=== PATIENT | male | born 2000 | race Caucasian/White ===

== ENCOUNTER 2023-11-09 15:42 | Emergency (ER) | payer OTHER, MEDICAID, SELFPAY | END 2023-11-09 16:25 | disposition left against medical advice (07) | LOC: ER 21:40 | PROVIDERS: Emergency Provider Emergency Medicine | DX: Z53.21 Procedure and treatment not carried out due to patient leaving prior to being seen by health care provider (principal) ==

== ENCOUNTER 2023-11-17 16:07 | Emergency (ER) | payer MEDICAID, SELFPAY ==
[2023-11-17 16:13] VITALS: BP 124/72; PULSE 75; RESP 16; TEMP 36.6; O2SAT 98
--- NOTE | 2023-11-17 16:40 | W.ED.GENAD ---
Discharge Plan Disposition Patient Disposition: Home Condition: Stable Discharge Details Clinical Impression: Decreased hearing of right ear Primary Care Provider: Unknown,Unknown ED Provider: Rob Espana Discharge Instructions Additional Instructions: use drops provided to you in the ED: 3 drops twice daily follow up with ENT for re-evaluation of your ear and audiogram to evaluate your hearing Referrals: Leonard Harvey MD [ [facility] STAFF PHYSICIAN] - [facility] General Date/Time Provider Initiated Documentation: 11/17/23 16:37. Limitations to Documentation: no limitations. Information obtained by: patient. HPI Narrative: 23-year-old gentleman without significant past medical history presents for evaluation of right ear fullness and decreased hearing. He reports that the symptoms have been ongoing for a couple of weeks. He denies any pain or drainage from his ear. He states that previously he was told that loud music shock wax against his ear and caused him trouble. He denies any recent swimming. General Stated Complaint: EarProblem MAITE: 4 Exam Narrative Exam Narrative: Review of Systems: All systems reviewed & are unremarkable except as noted in HPI and below Well-developed, no acute distress NCAT PERRL, normal conjunctiva Left TM and canal unremarkable Right TM without any wax in the canal, the TM is occluded by hydrogen peroxide bubbles, the canal appears erythematous and slightly edematous with some debris RRR Unlabored respiratory effort Nondistended abdomen Extremities w/o deformity, no cyanosis, no edema No rashes or lesions. no focal neurologic deficits Appropriate mood and affect Course Vital Signs Vital signs: Vital Signs Temperature 36.6 C 11/17/23 16:13 Pulse 75 11/17/23 16:13 Respiratory Rate 16 11/17/23 16:13 Blood Pressure 124/72 11/17/23 16:13 Pulse Oximetry 98 11/17/23 16:13 Temperature 36.6 C 11/17/23 16:13 Temperature Source Tympanic 11/17/23 16:13 Pulse 75 11/17/23 16:13 Respiratory Rate 16 11/17/23 16:13 Blood Pressure 124/72 11/17/23 16:13 Blood Pressure Position Sitting 11/17/23 16:13 Pulse Oximetry 98 11/17/23 16:13 Oxygen Delivery Method Room Air 11/17/23 16:13 Oxygen Flow Rate 0 11/17/23 16:13 Pain Level 0 11/17/23 16:13 Medical Decision Making Emergent evaluation of right ear discomfort and decreased hearing. Initial differential includes cerumen impaction, otitis externa, otitis media, ruptured TM. The patient had gotten hydrogen peroxide in his ear prior to my evaluation. On my evaluation there does not appear to be any significant amount of wax in the canal. The TM does not appear to be intact and I am concerned that there might be some disruption there. This could be a false finding secondary to the hydrogen peroxide bubbling. But given his symptoms and the appearance of the canal, I will treat with ciprofloxacin drops. I recommend close follow-up with either PCP or ENT for reevaluation of the ear and the patient likely needs an audiogram for ongoing hearing changes. A referral has been placed for him to follow-up with ENT. Medical Records Medical records reviewed: Yes I reviewed the patient's medical records. Quality:SDOH Health Related Social Needs: No Data to Display PFSH All Active Problems Decreased hearing of right ear (Acute) Social History Smoking risk assessment performed?: No
[2023-11-17] MEDS: Ciprofloxacin/Dexameth. 7.5 ML BTL AS (16:43)
== END 2023-11-17 16:44 | disposition home or self-care (01) ==
PROVIDERS: Emergency Provider Emergency Medicine
DX: H91.91 Unspecified hearing loss, right ear (principal)
CPT/HCPCS: 99282; 99283

== ENCOUNTER 2024-01-15 17:16 | Emergency (ER) | payer MEDICAID, SELFPAY ==
[2024-01-15 17:17] VITALS: BP 168/78; PULSE 85; RESP 10; TEMP 36.8; O2SAT 98
[2024-01-15 17:41] LABS: Bilirubin Negative (Negative); Blood Moderate (Negative); Clarity Sl Cloudy (Clear); Glucose Negative (Negative); Ketones Negative (Negative); Leukocyte Esterase Negative (Negative); Nitrite Negative (Negative); Specific Gravity >= 1.030 (1.005-1.025); Urobilinogen 0.2 mg/dL (Up to 0.2); pH 6.5 (5-8)
--- NOTE | 2024-01-15 17:47 | ED.GENADUL_ITS ---
Discharge Plan Disposition Patient Disposition: Home Condition: Stable Discharge Details Clinical Impression: Concern about sexually transmitted disease in male without diagnosis Primary Care Provider: None,None ED Provider: Jared Villegas Home Meds and New Rx's Prescriptions: New valacyclovir 1 gram tablet 1,000 mg PO BID 10 Days Qty: 20 0RF Discharge Instructions Instructions: Valacyclovir, STI Prevention, Sexually Transmitted Infections ED Additional Instructions: You were seen in the emergency department for your concerning lesions on your penis, you refused exam but did have pictures, I am concerned that you may have HSV versus another STI, we initiated one-time treatment for gonorrhea and chlamydia coverage and I sent a prescription for you to start empiric treatment for an HSV infection, you state that your partner stated she had a yeast infection, you certainly can use topical antifungals like terbinafine or butenafine on the area 2-3 times per day and evaluate for response to topical treatment therapy. We have sent out tests for gonorrhea and chlamydia as well as UTI, herpes simplex virus, HIV and syphilis. Some of these tests will take multiple days to return, please check your portal for results, I do recommend that you get another herpes simplex antibody test in 3 to 4 weeks as you may not be seropositive yet if this is your first outbreak. HPI General Date/Time Provider Initiated Documentation: 01/15/24 17:32 . HPI Narrative: 23 year-old male presents to ED today by POV/ambulating with a chief complaint of penile pain and lesions with onset after having unprotected sex about 2 weeks ago, states lesions appeared diffusely to glans today. Quality described as soreness, no radiation to viral prodromal illness over the past weeks- no radiation to fever, body aches, sore throat, denies penile discharge, denies overt dysuria, denies foul odors. Severity is described as moderate. Palliating factors include nothing attempted. Provoking factors include nothing specific. Events leading up to the incident/Associated Symptoms: Patient states he has not been sexually active in a long time prior to this, denies any previous STDs. Patient not anticoagulated. Related Data Home Medications ?Medication ?Instructions ?Recorded ?Confirmed valacyclovir 1 gram tablet 1,000 mg PO BID 10 days #20 tabs 01/15/24 Previous Rx's ?Medication ?Instructions ?Recorded valacyclovir 1 gram tablet 1,000 mg PO BID 10 days #20 tabs 01/15/24 Allergies Allergy/AdvReac Type Severity Reaction Status Date / Time No Known Allergies Allergy Unverified 01/15/24 17:20 General Stated Complaint: Male Reproductive Problem MAITE: 4 Review of Systems All systems reviewed & are unremarkable except as noted in HPI and below Exam Narrative Exam Narrative: GENERAL APPEARANCE: Well-nourished, non-toxic, awake and alert, atraumatic, no acute distress. SKIN: Warm, pink, dry, intact, without rashes/lesions/ulcerations. HEAD: Normocephalic, atraumatic, normal hair distribution for gender/age. EYES: Normal conjunctiva, no exudates on lids/lashes. ENT: Nares patent, no circumoral cyanosis, no facial swelling NECK: Supple, trachea midline, painless cervical ROM. LUNGS/CHEST: Non-labored respirations, normal A/P diameter, symmetrical expansion, no chest wall deformity HEART (CV/PV): No peripheral edema, no JVD. ABDOMEN: Soft, non-distended, no guarding. : Exam refused by patient MSK: Normal ROM, no swelling/deformity to bilateral UEs or LEs, moving all extremities without weakness, no cyanosis, spine midline without tenderness, normal curvature. NEURO: Mental Status AAOx4 - alert to person, place, time, events No facial droop, no forehead involvement. Motor: No focal weakness - strength 5/5 in bilateral UEs and LEs, proximal and distal, symmetric. Sensory: sensation intact to light touch globally. Gait normal: patient ambulated without ataxia into ED room. PSYCH: euthymic, cooperative, pleasant, appropriate speech Course Vital Signs Vital signs: Vital Signs Temperature 36.8 C 01/15/24 17:17 Pulse 85 01/15/24 17:17 Respiratory Rate 10 L 01/15/24 17:17 Blood Pressure 168/78 H 01/15/24 17:17 Pulse Oximetry 98 01/15/24 17:17 Temperature 36.8 C 01/15/24 17:17 Temperature Source Oral 01/15/24 17:17 Pulse 85 01/15/24 17:17 Respiratory Rate 10 L 01/15/24 17:17 Blood Pressure 168/78 H 01/15/24 17:17 Blood Pressure Position Sitting 01/15/24 17:17 Pulse Oximetry 98 01/15/24 17:17 Oxygen Delivery Method Room Air 01/15/24 17:17 Oxygen Flow Rate 0 01/15/24 17:17 Pain Level 0 01/15/24 17:17 Medical Decision Making This dictation utilizes [id number] dictation software and may contain unedited grammatical errors. 23 year-old male presents to ED today by POV/ambulating with a chief complaint of penile pain and lesions with onset after having unprotected sex about 2 weeks ago, states lesions appeared diffusely to glans today. Quality described as soreness, no radiation to viral prodromal illness over the past weeks- no radi ation to fever, body aches, sore throat, denies penile discharge, denies overt dysuria, denies foul odors. Severity is described as moderate. Palliating factors include nothing attempted. Provoking factors include nothing specific. Events leading up to the incident/Associated Symptoms: Patient states he has not been sexually active in a long time prior to this, denies any previous STDs. Patients' medical history: Negative, otherwise healthy. Family and social history: Noncontributory. Pertinent exam findings / vital signs include patient refused physical exam, had a video of the lesions which appeared vesicular. Differential / pathologies of concern include HSV, STI, unlikely superficial fungal infection, not chancre or prodrome of syphilis. Diagnostic studies of: -UA, NG/GC urine send out, RPR, HIV with reflex, HSV IgG 1/2. -UA shows no bacteria, no nitrites, no leuk esterase -Discharged with other studies pending Interventions of: -500 mg IM ceftriaxone, 1 g p.o. azithromycin, 1 g p.o Valtrex with Rx sent. ED Course/Assessment/Plan: 23-year-old male history of empirically for STIs while studies are pending, based on the video and his exam refusal it does appear he may have an initial outbreak of HSV, counseled him extensively on trial of valacyclovir, he states it may be a yeast infection prednisone research on the Internet, I did welcome him to use a topical antifungal cream to the area for trial of relief. Counseled on the need for follow-up HSV IgG 1/2 antibody testing in 3 to 4 weeks as he may not be seropositive yet, counseled to check his results on portal or return for any acute concerns Findings not consistent with chancre, septic vitals. Disposition of concern about sexually transmitted disease in male without diagnosis. Patient verbalized understanding of the plan and return to ED criteria and engaged in shared decision making. Medical Records Medical records reviewed: Yes I reviewed the patient's medical records. Lab Data Lab results reviewed: Yes I reviewed the patient's lab results. Labs: Laboratory Tests Range/Units 01/15/24 01/15/24 17:30 17:32 Urine Color (Yellow) Yellow Urine Clarity (Clear) Sl Cloudy Urine pH (5-8) 6.5 Ur Specific [place] (1.005-1.025) >= 1.030 H Urine Protein (Neg-Trace) mg/dL 100 H Urine Ketones (Negative) mg/dL Negative Urine Blood (Negative) Moderate H Urine Nitrite (Negative) Negative Urine Bilirubin (Negative) Negative Urine Urobilinogen (Up to 0.2) mg/dL 0.2 Ur Leukocyte Esterase (Negative) Negative Urine RBC (0-2) HPF 20-50 H Urine WBC (0-5) HPF 3-5 Ur Epithelial Cells (Negative) HPF Rare Urine Crystals (Negative) HPF Negative Urine Bacteria (Negative) HPF Rare Urine Mucus (Negative) Negative Ur Culture Indicated? No Urine Glucose (Negative) mg/dL Negative HIV 1&2 Antibody Rapid Cancelled Quality:SDOH Health Related Social Needs: No Data to Display PFSH All Active Problems (Updated 01/15/24 @ 17:49 by ELYSSA Calle) Concern about sexually transmitted disease in male without diagnosis (Acute) Social History Smoking/Tobacco Use Status: Never Smoking risk assessment performed?: Yes Alcohol Intake: current Alcohol Intake frequency: a few times a month Alcohol type: beer Drug use: Never Substance use type: does not use Housing: apartment Do you feel safe at home: Yes Do you feel safe in your relationship?: Yes
[2024-01-15 17:51] LABS: Bacteria Rare HPF (Negative); C & S Indicated? No; Crystals Negative HPF (Negative); Epithelial Cells Rare HPF (Negative); Mucus Negative (Negative); RBC 20-50 HPF (0-2)
[2024-01-15] MEDS: Azithromycin 250 MG TAB 1000 MG PO (18:13)
[2024-01-15] MEDS: cefTRIAXone 1 GM VIAL 0.5 GM IM (18:13)
[2024-01-15] MEDS: valACYclovir 1,000 MG TAB 1000 MG PO (18:13)
[2024-01-15] MEDS: Lidocaine 1% Multi-Dose 50 ML VIAL (18:14)
[2024-01-17 12:37] LABS: HIV-1/2 Ag & Ab Screen Negative (Negative)
[2024-01-18 11:21] LABS: Syphilis Serology (RPR) Negative (Negative)
[2024-01-18 11:58] LABS: HSV Type 1 Ab, IgG Positive (Negative); HSV Type 2 Ab, IgG Negative (Negative)
[2024-01-18 12:42] LABS: GC Result Negative (Negative)
[2024-01-18 13:11] LABS: Chlamydia Result Positive (Negative)
--- NOTE | 2024-01-18 15:24 | NUR.NOTE ---
Accessed Pt chart to locate name of antibiotics given for the Specimen document. Gave form to Valentín
--- NOTE | 2024-01-18 16:31 | W.ED.FU ---
Date of service: 01/18/24 Time of Service: 16:32 Follow Up Plan: I called this patient at his home number as his chlamydia probe returned positive from his urine. He had a voicemail but was de identified. I left my name and asked him to call the emergency department back. Patient has received 500 mg of intramuscular ceftriaxone and a gram of azithromycin which should cover him for both gonorrhea and chlamydia. If he calls back anticipate he will benefit from discussion of partner treatment.
--- NOTE | 2024-01-19 15:53 | W.ED.FU ---
Date of service: 01/19/24 Time of Service: 15:53 Follow Up Plan: This patient called on my shift. Reviewed his results on the phone. He reported that he was still taking his valacyclovir. 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 This certainly could be secondary to either oral or genital herpes. I advised that if his lesions did not clear up that he should return to the emergency department. He reported that his prior partner was aware of being chlamydia positive. I advised patient return to the emergency department if you develop any dysuria abnormal urethral discharge or had any other concerns. He understood his return indications.
== END 2024-01-15 18:13 | disposition home or self-care (01) ==
PROVIDERS: Emergency Provider Physician Assistant
DX: Z20.2 Contact with and (suspected) exposure to infections with a predominantly sexual mode of transmission (principal)
CPT/HCPCS: 87389; 87491; 87591; 96372; 99283; 81003; 81015; 86592; 86695; 86696; J0696

== ENCOUNTER 2024-09-05 16:34 | Emergency (ER) | payer MEDICAID, SELFPAY ==
[2024-09-05 16:42] VITALS: BP 145/94; PULSE 93; RESP 14; TEMP 36.5; O2SAT 98
[2024-09-05 17:06] VITALS: BP 145/88; PULSE 90; RESP 14; TEMP 36.5; O2SAT 100
--- NOTE | 2024-09-05 17:33 | ED.GENADUL_ITS ---
Discharge Plan Disposition Patient Disposition: Home Condition: Stable Discharge Details Clinical Impression: Acute streptococcal pharyngitis Primary Care Provider: None,None ED Provider: Nils Murrieta Home Meds and New Rx's Prescriptions: New amoxicillin 875 mg tablet 875 mg PO BID 10 Days Qty: 20 0RF Discharge Instructions Additional Instructions: You are positive for strep and you are being treated with amoxicillin. If you are not improving within a week follow-up with your primary care provider or express care. For your acid reflux you can take daily omeprazole. If you feel significantly more ill or unable to swallow liquids return to the emergency department for reevaluation. Stand Alone Forms: Work Release HPI General Mode of arrival: ambulatory . Date/Time Provider Initiated Documentation: 09/05/24 16:45 . Limitations to Documentation: no limitations . Information obtained by: patient . History of Present Illness 24 year old M presents to the emergency department with the chief complaint of sore throat, described as moderate, Quality is described as aching, Patient started experiencing this day(s) (3) and it has been constant. No relieving factors improve symptom(s), No exacerbating factors reported . Patient notes no other symptoms.. Patient did receive the following treatments prior to arrival, none Related Data Home Medications ?Medication ?Instructions ?Recorded ?Confirmed amoxicillin 875 mg tablet 875 mg PO BID 10 days #20 tabs 09/05/24 Previous Rx's ?Medication ?Instructions ?Recorded amoxicillin 875 mg tablet 875 mg PO BID 10 days #20 tabs 09/05/24 Allergies Allergy/AdvReac Type Severity Reaction Status Date / Time No Known Allergies Allergy Unverified 09/05/24 16:47 General Stated Complaint: Sorethroat MAITE: 4 Review of Systems All systems reviewed & are unremarkable except as noted in HPI and below Constitutional Constitutional: Denies chills, Denies fever(s) and Denies weakness ENT Ears, Nose, Mouth, and Throat: Denies change in voice Cardiovascular Cardiovascular: Denies chest pain and Denies dyspnea Respiratory Respiratory: Denies cough and Denies dyspnea Gastrointestinal Gastrointestinal: Denies abdominal pain, Denies nausea and Denies vomiting Neurologic Neurologic: Denies weakness Psychiatric Psychiatric: Denies depression Exam Const General: no acute distress Orientation: alert HENMT Head: normal to inspection Ears: external ears normal General nose exam: external nose normal Mouth: moist mucous membranes Throat: uvula midline Eyes General: appearance normal, both eyes and all related structures Neck Neck: normal visual inspection Resp Effort & Inspection: normal respiratory effort and able to speak in complete sentences Cardio Rate: regular rate Skin General skin exam: no rashes or lesions noted Neuro General: patient alert and patient oriented x3 Extrem General: normal to inspection Psych Mental Status: mental status grossly normal Course Vital Signs Vital signs: Vital Signs Temperature 36.5 C 09/05/24 16:42 Pulse 93 H 09/05/24 16:42 Respiratory Rate 14 09/05/24 16:42 Blood Pressure 145/94 H 09/05/24 16:42 Pulse Oximetry 98 09/05/24 16:42 Temperature 36.5 C 09/05/24 17:06 Temperature Source Oral 09/05/24 17:06 Pulse 90 09/05/24 17:06 Respiratory Rate 14 09/05/24 17:06 Blood Pressure 145/88 H 09/05/24 17:06 Blood Pressure Position Sitting 09/05/24 17:06 Pulse Oximetry 100 09/05/24 17:06 Oxygen Delivery Method Room Air 09/05/24 17:06 Oxygen Flow Rate 0 09/05/24 16:42 Pain Level 7 09/05/24 16:42 Lab/Test Results Lab/Test Results: POC Strep Test-THAD(Rapid) Start: 09/05/24 16:45 Freq: .Rapid Strep Test Status: Active Protocol: Document 09/05/24 17:26 [facility] (Rec: 09/05/24 17:26 [facility] [id number]) Strep test-THAD(Rapid)-POC POC-Strep test-THAD (Rapid) Positive POC-Strep test-THAD (Rapid) Positive Medical Decision Making 24-year-old male states that he has chronically enlarged tonsils comes in with several days of sore throat. No high fevers, no difficulty swallowing liquids. He is well-appearing speaking full sentences without any stridor or drooling. His posterior pharynx is erythematous with enlarged tonsils, no exudates, midline uvula, no submandibular swelling or pain over the hyoid or restricted neck movements. He has strep test done prior to my exam which is positive. He has no findings on exam to suggest retropharyngeal abscess, epiglottitis, peritonsillar abscess, will initiate antibiotics with amoxicillin and advised to follow-up with either his primary care provider or express care if not improving and return precautions given. He also asked for recommendations for acid reflux which he has frequently and I advised to try a daily omeprazole. Quality:SDOH Health Related Social Needs: No Data to Display PFSH All Active Problems (Updated 09/05/24 @ 17:36 by Nils Murrieta MD) Acute streptococcal pharyngitis (Acute) Social History Smoking/Tobacco Use Status: Never Smoking risk assessment performed?: Yes Alcohol Intake: current Alcohol Intake frequency: a few times a month Alcohol type: beer Drug use: Never Substance use type: does not use Housing: apartment Do you feel safe at home: Yes Do you feel safe in your relationship?: Yes
[2024-09-05] MEDS: Dexamethasone 10 MG/ML VIAL PO (17:57)
[2024-09-05 18:17] VITALS: BP 138/72; PULSE 70; RESP 16; TEMP 37.2; O2SAT 98
== END 2024-09-05 18:21 | disposition home or self-care (01) ==
PROVIDERS: Emergency Provider Emergency Medicine
DX: J02.0 Streptococcal pharyngitis (principal)
CPT/HCPCS: 99283 ×2; 87880; J1100

== ENCOUNTER 2025-01-26 03:01 | Emergency (ER) | payer SELFPAY ==
[2025-01-26 03:05] VITALS: BP 156/70; PULSE 78; RESP 18; TEMP 37.1; O2SAT 97
[2025-01-26 03:15] VITALS: BP 156/70; PULSE 78; RESP 18; TEMP 37.1; O2SAT 97
--- NOTE | 2025-01-26 03:26 | ED.GENADUL_ITS ---
Discharge Plan Disposition Patient Disposition: Home Condition: Good Discharge Details Clinical Impression: Upper respiratory infection Primary Care Provider: None,None ED Provider: Tia Aldrich Home Meds and New Rx's Prescriptions: No Action No Known Home Meds Discharge Instructions Instructions: Upper Respiratory Infection ED Additional Instructions: Tylenol and ibuprofen over the counter; follow the directions on the bottle. Oxymetazoline spray x 2 in each nostril twice a day as needed for the next three days. Do not use for longer than three days as this will cause you to become dependent on the medication. Call your primary care doctor in the morning to schedule an appointment to followup on your visit here. At that visit discuss your blood pressure which is high here in the ED. Return to the emergency department for new or worsening symptoms including diffiuculty breathing, chest pain, or if you have any other concerns. Stand Alone Forms: Work Release HPI General Mode of arrival: ambulatory . Date/Time Provider Initiated Documentation: 01/26/25 03:10 . Limitations to Documentation: no limitations . Information obtained by: patient . 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 No fevers, chills, rash, difficulty breathing (aside from nasal congestion), or chest pain. Has also had infrequent diarrhea. No nausea, vomiting, or abdominal pain (some cramping while having a BM otherwise no pain). Otherwise in his usual state of health. Related Data Home Medications ?Medication ?Instructions ?Recorded ?Confirmed Unknown [No Known Home Meds] 01/26/25 0 01/26/25 Allergies Allergy/AdvReac Type Severity Reaction Status Date / Time No Known Allergies Allergy Unverified 01/26/25 03:08 General Stated Complaint: RespSymp MAITE: 4 Review of Systems Narrative: see HPI Exam Narrative Exam Narrative: General: Alert, well appearing, well nourished, in no acute distress. Head: Normocephalic, atraumatic Neck: Trachea midline, ?Neck supple. ENT: ?MMM.? No oropharygeal lesions or exudate. Cardiac: ?RRR, no murmurs appreciated Resp: No respiratory distress. CTAB. Abd: ?Soft, non-distended, nontender Extremities: ?No deformities.? No peripheral edema. Neurologic: GCS 15. ? Moves all extremities freely against gravity Course Vital Signs Vital signs: Vital Signs Temperature 37.1 C 01/26/25 03:05 Pulse 78 01/26/25 03:05 Respiratory Rate 18 01/26/25 03:05 Blood Pressure 156/70 H 01/26/25 03:05 Pulse Oximetry 97 01/26/25 03:05 Temperature 37.1 C 01/26/25 03:15 Pulse 78 01/26/25 03:15 Respiratory Rate 18 01/26/25 03:15 Respiratory Effort Normal 01/26/25 03:15 Respiratory Depth Normal 01/26/25 03:15 Blood Pressure 156/70 H 01/26/25 03:15 Blood Pressure Position Sitting 01/26/25 03:15 Pulse Oximetry 97 01/26/25 03:15 Oxygen Delivery Method Room Air 01/26/25 03:15 Oxygen Flow Rate 0 01/26/25 03:15 Medical Decision Making 24yo previously healthy male presenting requesting a work note; has had 2-3 days of URI symptoms (cough, rhinnorhea, sore throat, body aches) and works around food. Also some diarrhea. Slightly hypertensive on arrival, vital signs o therwise reassuring. Very well appearing on exam, lungs CTAB. Not suggestive of sepsis, pneumonia, deep space neck infection, meningitis, surgical intraabdominal process, or other emergent pathology. No indication for labs or imaging. Will treat symptoms with toradol and Afrin and provide work note as requested. Discussed COVID/flu swab however pt does not want to wait for result and is not a candidate for antivirals. Discharged home; discharge instructions and return precuations were reviewed with patient who verbalized understanding. All questions were answered and he is in full agreement with the plan. PFSH All Active Problems (Updated 01/26/25 @ 03:30 by Tia Aldrich MD) Upper respiratory infection (Acute) Social History Smoking/Tobacco Use Status: Current every day Smoking risk assessment performed?: Yes Alcohol Intake: current Alcohol Intake frequency: holidays/special occasions only Alcohol type: beer Drug use: Daily Substance use type: marijuana Housing: apartment Do you feel safe at home: Yes Do you feel safe in your relationship?: Yes
[2025-01-26] MEDS: Oxymetazolone 0.05% SPRAY 15 ML BTL NS (03:41)
[2025-01-26] MEDS: Ketorolac 15 MG/ML VIAL IM (03:41)
== END 2025-01-26 03:50 | disposition home or self-care (01) ==
PROVIDERS: Emergency Provider Student in an Organized Health Care Education/Training Program
DX: J06.9 Acute upper respiratory infection, unspecified (principal)
CPT/HCPCS: 96372; 99283; J1885